=== PATIENT | female | born 1950 | race Caucasian/White ===

== ENCOUNTER 2019-06-23 19:42 | Emergency (ER) | payer OTHER ==
[2019-06-23 19:47] VITALS: BP 172/95; PULSE 78; TEMP 98.3; BMI 32.5
[2019-06-23] MEDS ORDERED: ACETAMINOPHEN 500 MG TABLET (FP) PO ONE (20:21)
[2019-06-23] MEDS ORDERED: ACETAMINOPHEN 500 MG TABLET (FP) ONE (20:23)
--- NOTE | 2019-06-23 20:43 | PDOC ---
Documentation entered by Adelfo Brock SCRIBE, acting as scribe for Roger Hood MD. Roger Hood MD: This documentation has been prepared by the Delmy murrieta Xhesika, SCRIBE, under my direction and personally reviewed by me in its entirety. I confirm that the documentation accurately reflects all work, treatment, procedures, and medical decision making performed by me. History of Present Illness - General Chief Complaint: Injury Stated Complaint: FALL Time Seen by Provider: 06/23/19 19:49 History Source: Patient Exam Limitations: No Limitations - History of Present Illness Initial Comments: 06/23/19 20:17 The patient is a 68 year old female, with a significant PMH of anxiety, HTN and HLD who presents to the emergency department L orbital laceration and swelling s/p mechanical fall. The patient states she was on the street walking up the steps into her house when she fell onto her L side. Patient denies LOC or dizziness. Patient denies any pain, SOB, double vision or changes in vision. Patient does not recall when her last tetanus was. PAST SURGICAL HISTORY: no significant history FAMILY HISTORY: no pertinent history SOCIAL HISTORY: Pt lives with family and is employed. MEDICATIONS: reviewed ALLERGIES: As per nursing notes 06/23/19 21:55 Assessment and plan: This is a 68-year-old female who tripped and fell. Patient had a mechanical fall. There was no loss of consciousness or any other associated symptoms that are concerning for syncope or anything other than a mechanical trip and fall. Patient however did hit her right cheekbone area on a brick corner and does have a significant degree of tenderness of the inferior orbit area as well as some ecchymosis. Very small puncture type wound that was associated with the injury. Seizure note laceration repair of small puncture wound of face laceration was cleaned and closed with Dermabond patient tolerated well CAT scan was obtained that does show a tripod fracture of that orbit Patient started on antibiotics and referred to ENT 06/23/19 21:58 Past History - Past Medical History Allergies/Adverse Reactions: Allergies Allergy/AdvReac Type Severity Reaction Status Date / Time No Known Allergies Allergy Verified 06/23/19 19:43 Home Medications: Ambulatory Orders Atorvastatin Ca [Lipitor] 10 mg PO HS 10/31/11 Escitalopram Oxalate [Lexapro 5mg/5mL Oral Solution -] 10 mg PO HS 10/31/11 Losartan Potassium [Cozaar] 50 mg PO HS 10/31/11 Azithromycin 250 mg PO BID #4 tablet 06/23/19 COPD: No HTN: Yes Hypercholesterolemia: Yes - Suicide/Smoking/Psychosocial Hx Smoking Status: No Smoking History: Never smoked Have you smoked in the past 12 months: No Number of Cigarettes Smoked Daily: 0 Information on smoking cessation initiated: No Hx Alcohol Use: No Drug/Substance Use Hx: No Substance Use Type: None Hx Substance Use Treatment: No Review of Systems - Review of Systems Able to Perform ROS?: Yes Comments:: 06/23/19 20:17 General: No fevers or chills, no weakness, no weight loss HEENT: (+) L orbital laceration and swelling. No change in vision. No sore throat,. No ear pain CardioVascular: No chest pain or shortness of breath Respiratory:No cough, or wheezing. Gastrointestinal: no nausea, vomiting, diarrhea or constipation, No rectal bleeding Genitourinary: No dysuria, hematuria, or frequency Musculoskeletal: No joint or muscle pain or swelling Neurologic: No headache, vertigo, dizziness or loss of consciousness Psychiatric: nor depression Skin: No rashes or easy bruising Endocrine: no increased thirst or abnormal weight change Allergic: no skin or latex allergy All other systems reviewed and normal *Physical Exam - Vital Signs Last Vital Signs Temp Pulse Resp BP Pulse Ox 98.3 F 78 18 172/95 H 98 06/23/19 19:43 06/23/19 19:43 06/23/19 19:43 06/23/19 19:43 06/23/19 19:43 - Physical Exam Comments: 06/23/19 20:18 GENERAL: The patient is awake, alert, and fully oriented, in no acute distress. HEAD: Normal with no signs of trauma. EYES: (+) Ecchymosis of L lower eyelid. (+) tenderness to palpation of inferior wall. No evidence of muscle entrapment. (+) lateral to eye roughly 2mm punctate puncture type wound with no bleeding. Pupils equal, round and reactive to light , extraocular movements intact, sclera anicteric, conjunctiva clear. CERVICAL SPINE: No tenderness. EXTREMITIES: Normal range of motion, no edema. NEUROLOGICAL: Normal speech, normal gait. PSYCH: Normal mood, normal affect. SKIN: Warm, Dry, normal turgor, no rashes or lesions noted. *DC/Admit/Observation/Transfer Diagnosis at time of Disposition: Fall, Facial laceration Left orbit fracture Qualifiers: Encounter type: initial encounter Fracture type: closed Qualified Code(s): S02.82XA - Fracture of other specified skull and facial bones, left side, initial encounter for closed fracture - Discharge Dispostion Disposition: HOME Decision to Admit order: No - Prescriptions Prescriptions: Azithromycin 250 mg PO BID #4 tablet - Referrals Referrals: Tera Marin MD [Staff Physician] - - Patient Instructions Printed Discharge Instructions: DI for Laceration Repair With Dermabond Additional Instructions: For the pain take Tylenol 1000 mg as often this 3-4 times a day if needed. Someone to check on you once tonight during the night. You should be arousable to their normal level of arousability for that time of the night. If you have been vomiting, had a seizure, or you are unable to be aroused or there is a change in your mental status call 911 go back to the nearest emergency department. Take Tylenol as needed for pain. Followup with your primary care doctor Take azithromycin 1 tablet a day for 4 days. Take your next dose tomorrow evening. This is to prevent a sinus infection. Call the ENT doctor in in the morning and get an appointment to follow-up. Return to the emergency department immediately with ANY new, persistent or worsening symptoms. Continue any medications as previously prescribed by your physician. You should follow up with your primary doctor as soon as possible regarding today's emergency department visit. . Please make sure your doctor reviews the results of your emergency evaluation. Thank you for coming to the Emergency Department today for your care. It was a pleasure to see you today. Please note that your evaluation is INCOMPLETE until you follow-up with your doctor. - Post Discharge Activity
[2019-06-23] MEDS ORDERED: AZITHROMYCIN 500 MG TABLET PO ONE (21:52)
[2019-06-23] MEDS ORDERED: AZITHROMYCIN 250 MG TABLET ONE (22:03)
== END 2019-06-23 22:08 | disposition home or self-care (01) ==
LOC: FER 19:42
PROC: 0HQ1XZZ Repair Face Skin, External Approach (ICD-10-PCS; principal; 2019-06-23)
DX: S01.112A Laceration without foreign body of left eyelid and periocular area, initial encounter (principal); S02.82XA Fracture of other specified skull and facial bones, left side, initial encounter for closed fracture; W18.39XA Other fall on same level, initial encounter; Y93.89 Activity, other specified; Y92.89 Other specified places as the place of occurrence of the external cause; I10 Essential (primary) hypertension; E78.00 Pure hypercholesterolemia, unspecified
CPT/HCPCS: 12011-25; 70450-TC; 70486-TC; 99283-25